=== PATIENT | male | born 1990 | race Caucasian/White ===

== ENCOUNTER 2025-03-21 09:36 | Emergency (ER) | payer OTHER, SELFPAY ==
[2025-03-21 09:45] VITALS: BP 151/111; PULSE 74; RESP 20; TEMP 36.8; O2SAT 100
[2025-03-21 09:52] VITALS: BP 150/99
--- NOTE | 2025-03-21 10:13 | ED.BACK ---
HPI - Back Pain/Injury General Chief Complaint: Back Pain/Injury Stated Complaint: Lower Back Pain Time Seen by Provider: 03/21/25 10:10 Source: patient, RN notes reviewed and old records reviewed Mode of arrival: ambulatory Limitations: no limitations History of Present Illness HPI Narrative: 35 year old male presents with complaints of flare of his chronic lower back pain starting since yesterday. Patient denies any recent injury or known twisting or lifting that proceeded flare in his back pain. Patient reports that pain is along incision line of previous laminectomy done on L4-5 in 2022 at the [facility]. He reports that at times pain does go into his buttocks but does not go down his legs like prior to his surgery. He reports that he had MRI done in the past few months and was told his DDD has worsened and was seen by pain management at [facility] and told he needed PT but never sent any referral for service. Patient reports that he has responded to Toradol injection in the past with his flares and would like one today if possible, has been taking Tylenol without any improvement. Patient denies any bowel or bladder dysfunction. MD elicited complaint: back pain Pertinent past history: back surgery and other (DDD) Onset (ago): day(s) (flare in his pain since yesterday) Severity: severe Pain scale (0-10): 9 Similar Symptoms Previously: Yes Quality: sharp and stabbing Location: lumbar spine Radiation: buttocks Treatments prior to arrival: acetaminophen Related Data Allergies Allergy/AdvReac Type Severity Reaction Status Date / Time No Known Allergies Allergy Verified 03/21/25 09:56 Review of Systems Review of Systems: CONSTITUTIONAL: Denies fever, chills, or sweats. EYES: Denies visual changes, redness, or discharge. ENT: Denies rhinorrhea, congestion, sore throat, or otalgia. CARDIOVASCULAR: Denies chest pain, palpitations, or edema. RESPIRATORY: Denies cough or dyspnea. GASTROINTESTINAL: Denies abdominal pain, nausea, vomiting, or diarrhea. GENITOURINARY: Denies dysuria or hematuria.denies any bladder or bowel dysfunction SKIN: Denies rash or itching. MUSCULOSKELETAL: Reports lower back pain, with some radiation to buttocks at times, or myalgia. NEUROLOGIC: Denies headache, numbness, or weakness. PSYCHIATRIC: Denies anxiety or depression. All systems reviewed & are unremarkable except as noted in HPI and below PMFSH Past Medical History Medical History (Updated 03/22/25 @ 08:49 by Mandi Desai APRN) PTSD (post-traumatic stress disorder) TBI (traumatic brain injury) Hypertension DDD (degenerative disc disease), lumbar Surgical History Surgical History (Updated 03/22/25 @ 08:46 by Mandi Desai APRN) Hx of laminectomy L4-5 Social History Social History (Updated 03/22/25 @ 08:47 by Mandi Desai APRN) Tobacco type: smokeless tobacco Smokeless tobacco user: other Additional smoking assessment comments: nicotine pouches Alcohol use details: no alcohol use Substance use: current Substance use type: marijuana Gender identity (if verbalized by the patient): Male Comments At time of signature, agree with nursing past medical, surgical, social and family history. There is no relevant family history pertinent to the presenting complaint Exam Narrative: GENERAL: Well-appearing, well-nourished, and in some acute distress. HEAD: Normocephalic, atraumatic. EYES: PERRLA and EOMI.no nystagmus ENT: Nares clear, no rhinorrhea or epistaxis. Mucous membranes moist.TM's normal throat pink with no redness or swelling NECK: Supple. no lymphadenopathy CHEST: Clear to auscultation. No respiratory distress.no cough noted SAO2 100% on room air HEART: Regular rate and rhythm. No murmur heard. Normal peripheral pulses. ABDOMEN: Soft, nontender, nondistended, normal active bowel sounds. EXTREMITIES: Normal range of motion. No edema.Pain to mid aspect of lower back along incisional area of previous laminectomy, denies any radiation of pain to his legs or any tingling or numbness in legs,Patient reports some radiation at times to his buttocks if he has been sitting very long, Normal movement of lower extremities gait steady without limp, denies any bowel or bladder dysfunction. Patient has tenderness along incisional area with palpation, no SI pain on evaluation no warmth or redness of lower back area. SKIN: Warm, dry, no rash. NEURO: No focal deficits. Alert and oriented x3. Course Course Emergency Course: Patient is aware of diagnosis, understands and agrees to treatment plan.? Anticipatory guidance given.? Patient agrees to follow-up as directed and is aware of reasons to seek care at the emergency department. Portions of this record may have been created with voice recognition software Level of Care: Express Care Visit Vital Signs Vital signs: Vital Signs Temperature 36.8 C 03/21/25 09:45 Pulse Rate 74 03/21/25 09:45 Respiratory Rate 20 03/21/25 09:45 Blood Pressure 151/111 H 03/21/25 09:45 Pulse Oximetry 100 03/21/25 09:45 Oxygen Delivery Room Air 03/21/25 09:45 Temperature 36.8 C 03/21/25 09:45 Pulse Rate 74 03/21/25 09:45 Respiratory Rate 20 03/21/25 09:45 Blood Pressure 150/99 H 03/21/25 09:52 Pulse Oximetry 100 03/21/25 09:45 Oxygen Delivery Room Air 03/21/25 09:45 Reviewed MDM - Back Pain/Injury MDM Narrative Medical decision making narrative: No risk factors or findings concerning for epidural abscess, diskitis, vertebral osteomyelitis, cord compression, cauda equina, vertebral fracture or bone malignancy, AAA, or pyelonephritis. Patient instructed to consider further imaging and workup through their primary care physician as an outpatient if symptoms persist. Patient received injection of Toradol 60 mg IM while in clinic without reaction. Differential Diagnosis Differential diagnosis: Likely lumbar radiculopathy and other (DDD, exacerbation of chronic low back pain.) Medical Records Attestation: I reviewed the patient's medical records. Critical Care Time Critical Care Time Critical Care Time: No Discharge Plan Discharge Clinical Impression: Acute exacerbation of chronic low back pain Patient Disposition: Home Condition: Stable Instructions: Back Pain (ED) Additional Instructions: Ice and heat to the area for 20-30 minutes Gentle stretching exercises Gentle massage Caution with lifting, bending, stooping, twisting Avoid pushing, pulling take muscle relaxants as directed at bedtime only--caution drowsiness and no driving or alcohol Prednisone as ordered for 5 days with food take in the morning He may take the muscle relaxant and anti-inflammatory at the same time Tylenol or Ibuprofen for pain alternate every 4 hours, no more than 2400 mg of ibuprofen daily and no more that 4000mg daily of Tylenol Follow-up with your PCP if not improving in 5 days If your symptoms persist, change or worsen significantly before you can contact your personal physician then please, without delay, go to the emergency department for further evaluation. Follow-up with PCP in 7-10 days or sooner if needed Follow up with PCP soon in regards to your blood pressure which is elevated above threshold for referral. Blood pressure above 120/80 may indicate pre-hypertension.150/99 please follow up with your PCP Patient Language: Estonian Prescriptions: New cyclobenzaprine 10 mg tablet 10 mg PO HS Qty: 20 0RF prednisone 20 mg tablet 40 mg PO DAILY Qty: 10 0RF Rx Instructions: take with food Follow-up/Referrals: [facility] [Primary Care Provider, Medical] Stand Alone Forms: Work/School Release IP Time of Disposition: 10:37 Quality Celestine Coma Scale Eyes: Open Verbal: Oriented and Alert Motor: Follows Commands Celestine Coma Total Score: 15
[2025-03-21] MEDS: KETOROLAC (*BKC) 60 MG/2 ML VIAL IM (10:26)
--- OUTSIDE RECORDS SUMMARY | 2025-03-21 10:44 | XMS_ITS | Clinical Summary ---
Author Organization [address] Address [address] [place] [address] Care Team Providers Care Print Line Inspector Name Role Phone No, Physician Primary Care Provider [phone] Allergies No known active allergies Medications triamcinolone (KENALOG) 0.1 % creamIndication s:Eczema of both hands Apply topically 2 (two) times a day 80 g Active Active Problems No known active problems Surgical History Surgery Date Site/Laterality Comments LAMINECTOMY 05/18/2022 - 05/17/2023 Social History Tobacco Use Types Packs/Day Years Used Date Smoking Tobacco: Never Assessed Sex and Gender Information Value Date Recorded Sex Assigned at Not on file Legal Sex Male 8:03 PM SIDE SPLITTER Gender Identity Not on file Sexual Orientation Not on file Last Filed Vital Signs Vital Sign Reading Time Taken Comments Blood Pressure 140/78 06/05/2024 8:31 AM SIDE SPLITTER Pulse 83 06/05/2024 8:31 AM SIDE SPLITTER Temperature 36.7 C (98.1 F) 06/05/2024 8:31 AM SIDE SPLITTER Respiratory Rate 16 06/05/2024 8:31 AM SIDE SPLITTER Oxygen Saturation 100% 06/05/2024 8:31 AM SIDE SPLITTER Inhaled Oxygen Concentration - - Weight 93 kg (205 lb) 06/05/2024 8:31 AM SIDE SPLITTER Height 180.3 cm (5' 11) 06/05/2024 8:31 AM SIDE SPLITTER Body Mass Index 28.59 06/05/2024 8:31 AM SIDE SPLITTER Plan of Treatment Health Maintenance Due Date Last Done Comments Depression Screening 1992 Hepatitis C Screening 1992 DTaP/Tdap/Td Vaccine (1 - Tdap) 01/14/2003 Varicella Vaccines (1 of 2 - 13+ 2-dose series) 01/14/2005 Hepatitis B Screening 01/14/2010 Regular Well Visit/Exam 18-64 01/14/2010 HPV Vaccines (1 - 3-dose SCD M series) 01/14/2019 Influenza Vaccine (#1) 2025 Pneumococcal vaccine <65 Aged Out No longer eligible based on patient's age to complete this topic Insurance [facility] [employer] [employer] Care Teams Print Line Inspector Relationship Specialty Start Date End Date No, Physician PCP - General 06/05/24
--- OUTSIDE RECORDS SUMMARY | 2025-03-21 10:44 | XMS_ITS | Patient Health Record ---
Author Organization [facility] Address [address] [place] [address] Support Name Relationship Address Phone Jaziel Salvador Emergency Contact [address] [place] [address] Armando Salvador Guarantor Unknown [phone] Allergies No Known Allergies Reason For Referral No Information Medications Medication SIG (Take, Route, Frequency, Duration) Notes Start Date End Date Status predniSONE 10 MG Tablet Oral; Duration: 8 Days Not-Taking hydrOXYzine HCl 25 MG Tablet 1 tablet at bedtime as needed Orally Once a day; Duration: 10 days As needed take 30-40 minutes prior to bedtime 07/01/2023 Active Plan Of Treatment No Information Insurance Providers Payer Name Payer Address Payer Phone Subscriber Number Group Number Insured Name Patient Relationship to Insured Coverage Start Date Coverage End Date [place] [facility] [employer] Claims [address] [place] [phone] [id number] Armando Salvador Self - patient is the insured
== END 2025-03-21 10:55 | disposition home or self-care (01) ==
PROVIDERS: Emergency Provider Registered Nurse
DX: M54.50 Low back pain, unspecified (principal); G89.29 Other chronic pain; I10 Essential (primary) hypertension
CPT/HCPCS: 96372; 99203; G0463; J1885